=== PATIENT | female | born 1955 | race Two or more races ===

== ENCOUNTER 2020-06-26 13:20 | Inpatient (IN) | payer OTHER ==
[~2020-06-26] VITALS: Ht 162.6 cm; Wt 60.1 kg
--- NOTE | 2020-06-26 14:06 | NUR ---
house wirer: pt from lobby to room 3
--- NOTE | 2020-06-26 14:10 | NUR ---
Pt brought from lobby to room 3 with steady gait noted. technology professional arrived shortly thereafter for draw.
--- NOTE | 2020-06-26 14:23 | NUR ---
Pt given clean catch instructions with stated understanding of these and assisted to the restroom for a ua sample.
[2020-06-26 14:31] LABS: BASOPHILS % (AUTO) 1 % (0-1); EOSINOPHILS % (AUTO) 3 % (1-7); LYMPHOCYTES % (AUTO) 14 % (22-44); MEAN CORPUSCULAR HEMOGLOBIN 31.7 pg (27.0-34.8); MEAN CORPUSCULAR HGB CONC 33.7 g/dL (32.4-35.8); MEAN PLATELET VOLUME 7.3 fL (7.4-10.4); MONOCYTES % (AUTO) 9 % (2-9); NEUTROPHILS % (AUTO) 73 % (42-75); PLATELET COUNT 447 x10^3/uL (130-400); RED BLOOD COUNT 3.87 x10^6/uL (3.82-5.3); RED CELL DISTRIBUTION WIDTH 14.2 % (9.6-15.2)
--- NOTE | 2020-06-26 14:31 | NUR ---
UA sent at this time and US tech at bedside for exam as ordered. Still awaiting MD exam. All orders are from triage-placed orders.
[2020-06-26 14:32] LABS: MD NO
[2020-06-26 14:42] LABS: ALANINE AMINOTRANSFERASE 42 U/L (12-78); ALBUMIN 3.4 g/dL (3.4-5.0); ANION GAP 7 mmol/L (5-15); CALCIUM 10.2 mg/dL (8.5-10.1); CHLORIDE 105 mmol/L (98-107); CREATININE 0.95 mg/dL (0.55-1.02)
[2020-06-26 14:45] LABS: ALKALINE PHOSPHATASE 314 U/L (45-117); BILIRUBIN,TOTAL 0.4 mg/dL (0.2-1.0); TOTAL PROTEIN 8.6 g/dL (6.4-8.2)
[2020-06-26 14:47] LABS: MICROSCOPIC INDICATED
--- NOTE | 2020-06-26 15:24 | NUR ---
US Tech finished and left room. Pt reassessed at this time without acute changes noted. Pt and aware of waiting for MD to garbage pick up worker chart to come discuss lab results and US findings as well as to discuss further plans of care.
--- NOTE | 2020-06-26 15:49 | NUR ---
MD at bedside for exam now.
--- NOTE | 2020-06-26 15:51 | NUR ---
Asked to come help MD secondary to translation needs as pt is Italian-speaking only and MD does not speak Italian. Chaperoned for rectal exam as well with reported possible mass present near rectal opening and terell blood present for occult blood exam. Pt updated to need for CT scan secondary to US showing possible tumor on pancreas with mets to liver. Pt states understanding and that her mother when she was very young of CA of unknown origin. Pt starting to tear up with hearing cancer and further conversation repeated once more about need for IV and CT scan.
[2020-06-26] MEDS ORDERED: SODIUM CHLORIDE FLUSH 10ML SYR IVF ONE (16:00)
--- NOTE | 2020-06-26 16:08 | NUR ---
IV started. Comfort measures given to pt after possible cancer dx given and need for CT scan explained with MD. Pt tearful and verbalizes fear of dx. at bedside states the same.
[2020-06-26] MEDS ORDERED: OMEP-110 PO (16:38)
--- NOTE | 2020-06-26 17:01 | NUR ---
Pt returned from CT at this time without acute changes noted while off unit.
[2020-06-26] MEDS ORDERED: OMNIPAQUE 350 MG/ML, 100ML BOTTLE ONE (17:03)
--- NOTE | 2020-06-26 17:06 | NUR ---
Pt assisted to restroom and then back, placed back on bedside monitor and VS reassessed. Pt requesting water. Will ask MD for permission first.
--- NOTE | 2020-06-26 17:43 | NUR ---
at bedside with computer based translator and interpreter services for discussio of findings with pt/. States CT shows rectal mass and mets to liver and pancreas.
--- NOTE | 2020-06-26 17:51 | NUR ---
Plan is to admit pt per MD. Pt okay to have oral fluids now. Cup of water brought into room for pt and set up on tray next to bed when pt is ready. Pt is speaking with family via cellphone at this time.
[2020-06-26] MEDS ORDERED: SODIUM CHLORIDE FLUSH 10ML SYR IVF PRN (18:30)
--- NOTE | 2020-06-26 18:37 | NUR ---
Diet tray ordered for pt and water brought into room for both pt and her . Pt aware she is waiting on a room assignment and that her diet tray will take approximately 30 minutes from now. Pt denies pain and call light remains in reach.
--- NOTE | 2020-06-26 19:04 | NUR ---
Report called to HUSEYIN Barraza and pt readied to go to floor. Brief report given to NO Castro RN, to assume care from this point until pt transfers to floor.
[2020-06-26 19:43] VITALS: BP 126/70
[2020-06-27 01:30] VITALS: BP 115/67
[2020-06-27 07:16] VITALS: BP 119/70
[2020-06-27] MEDS ORDERED: FLU VACC QS2020-21(6MOS UP)/PF 60MCG/0.5 ML SYR IM ONE (09:00)
[2020-06-27 09:53] LABS: INTERNATIONAL NORMALIZED RATIO 1.06 (0.93-1.1); PROTHROMBIN TIME 11.3 Seconds (9.6-11.5)
[2020-06-27 13:24] VITALS: BP 122/73
[2020-06-27] MEDS ORDERED: LIDOCAINE 1%, 10ML ONE (14:15)
[2020-06-27] MEDS ORDERED: MIDAZOLAM 1 MG/ML, 5ML ONE (14:19)
[2020-06-27] MEDS ORDERED: FLUMAZENIL 0.1 MG/1 ML, 5ML ONE (14:19)
[2020-06-27] MEDS ORDERED: FENTANYL PF 100 MCG/2ML ONE (14:19)
[2020-06-27] MEDS ORDERED: NALOXONE 1 MG/ML, 2ML ONE (14:20)
[2020-06-27] MEDS: ACETAMINOPHEN 325 MG TABLET PO PRN (16:47)
[2020-06-27 19:30] VITALS: BP 113/73
[2020-06-28 01:06] VITALS: BP 110/72
[2020-06-28 07:39] VITALS: BP 129/73
[2020-06-28] MEDS: ACETAMINOPHEN 325 MG TABLET PO PRN (12:44)
[2020-06-28 14:45] VITALS: BP 123/77
[2020-06-28 19:50] VITALS: BP 117/73
[2020-06-29 02:03] VITALS: BP 110/67
[2020-06-29 05:21] LABS: BASOPHILS % (AUTO) 1 % (0-1); EOSINOPHILS % (AUTO) 2 % (1-7); LYMPHOCYTES % (AUTO) 20 % (22-44); MEAN CORPUSCULAR HEMOGLOBIN 31.2 pg (27.0-34.8); MEAN CORPUSCULAR HGB CONC 33.2 g/dL (32.4-35.8); MEAN PLATELET VOLUME 7.1 fL (7.4-10.4); MONOCYTES % (AUTO) 11 % (2-9); NEUTROPHILS % (AUTO) 67 % (42-75); PLATELET COUNT 356 x10^3/uL (130-400); RED BLOOD COUNT 3.79 x10^6/uL (3.82-5.3)
[2020-06-29 05:25] LABS: MD NO
[2020-06-29 05:29] LABS: CHLORIDE 108 mmol/L (98-107)
[2020-06-29 05:36] LABS: ALANINE AMINOTRANSFERASE 51 U/L (12-78); ALKALINE PHOSPHATASE 286 U/L (45-117); ANION GAP 5 mmol/L (5-15); BILIRUBIN,TOTAL 0.6 mg/dL (0.2-1.0); CALCIUM 10.1 mg/dL (8.5-10.1); CREATININE 0.78 mg/dL (0.55-1.02); TOTAL PROTEIN 7.7 g/dL (6.4-8.2)
[2020-06-29 08:15] VITALS: BP 123/78
[2020-06-29] MEDS: D5%-0.45NACL+KCL 20MEQ 1,000 ML IV SCH ×2 (08:58→22:41)
[2020-06-29] MEDS ORDERED: GOLYTELY 4,000ML ORAL.SOL PO ONE (10:30)
[2020-06-29 13:33] VITALS: BP 126/79
[2020-06-29] MEDS: ACETAMINOPHEN 325 MG TABLET PO PRN (17:48)
[2020-06-29 19:50] VITALS: BP 116/76
[2020-06-30 03:35] VITALS: BP 108/70
[2020-06-30 09:20] VITALS: BP 122/70
[2020-06-30] MEDS ORDERED: LABETALOL 5MG/ML, 20ML IV PRN (10:30)
[2020-06-30] MEDS ORDERED: HYDROmorphone 2 MG/ML, 1ML IVPush PRN (10:30)
[2020-06-30] MEDS ORDERED: DIAZEPAM 5 MG/ML, 2ML IVPush PRN (10:30)
[2020-06-30] MEDS ORDERED: MEPERIDINE/PF 25MG/0.5ML IVPush PRN (10:30)
[2020-06-30] MEDS ORDERED: OXYcodone 5 MG/5 ML ORAL.SOL UDC PO PRN (10:30)
[2020-06-30] MEDS ORDERED: hydrALAzine 20 MG/ML, 1ML IV PRN (10:30)
[2020-06-30] MEDS ORDERED: FENTANYL PF 100 MCG/2ML IV PRN (10:30)
[2020-06-30] MEDS ORDERED: ACETAMINOPHEN 325 MG TABLET PO PRN (10:30)
[2020-06-30] MEDS ORDERED: KETOROLAC 30 MG/1 ML IV PRN (10:30)
[2020-06-30] MEDS ORDERED: ALBUTEROL SULFATE 2.5 MG/3 ML NPPB PRN (10:30)
[2020-06-30] MEDS ORDERED: PROMETHAZINE 25 MG/ML, 1ML IV PRN (10:30)
[2020-06-30] MEDS: ACETAMINOPHEN 325 MG TABLET PO PRN (12:55)
[2020-06-30 13:58] VITALS: BP 117/71
[2020-06-30] MEDS: D5%-0.45NACL+KCL 20MEQ 1,000 ML IV SCH (15:48)
[2020-06-30 18:35] VITALS: BP 133/78
[2020-07-01 02:04] VITALS: BP 116/71
[2020-07-01] MEDS: D5%-0.45NACL+KCL 20MEQ 1,000 ML IV SCH ×2 (03:16→15:47)
[2020-07-01 07:23] VITALS: BP 123/77
[2020-07-01] MEDS ORDERED: PROPOFOL 10 MG/ML, 20ML ONE (10:01)
[2020-07-01 13:58] VITALS: BP 111/68
[2020-07-01 18:51] VITALS: BP 129/76
[2020-07-01] MEDS ORDERED: ONDANSETRON 2MG/ML, 2ML IVPush PRN (20:00)
[2020-07-01] MEDS ORDERED: GUAIFENESIN/DM 200-20MG, 10ML UDC PO PRN (20:00)
[2020-07-01] MEDS ORDERED: ENALAPRILAT 1.25 MG/ML, 2ML IVPush PRN (20:00)
[2020-07-01] MEDS ORDERED: LACTATED RINGERS 1,000 ML IV SCH (20:00)
[2020-07-01] MEDS ORDERED: morphine SULFATE 10 MG/ML, 1ML IVPush PRN (20:00)
[2020-07-01] MEDS ORDERED: METHOCARBAMOL 500 MG TABLET PO PRN (20:00)
[2020-07-01] MEDS: ACETAMINOPHEN 325 MG TABLET PO PRN (20:52)
[2020-07-01] MEDS: HEPARIN 5,000 UNITS/ML, 1ML SQ SCH (20:52)
[2020-07-01] MEDS ORDERED: TEMAZEPAM 15 MG CAPSULE PO PRN (21:00)
[2020-07-02 01:14] VITALS: BP 104/62
[2020-07-02 04:54] LABS: BASOPHILS % (AUTO) 1 % (0-1); EOSINOPHILS % (AUTO) 3 % (1-7); LYMPHOCYTES % (AUTO) 19 % (22-44); MEAN CORPUSCULAR HEMOGLOBIN 31.9 pg (27.0-34.8); MEAN CORPUSCULAR HGB CONC 33.7 g/dL (32.4-35.8); MEAN PLATELET VOLUME 6.9 fL (7.4-10.4); MONOCYTES % (AUTO) 11 % (2-9); NEUTROPHILS % (AUTO) 66 % (42-75); PLATELET COUNT 374 x10^3/uL (130-400); RED BLOOD COUNT 3.53 x10^6/uL (3.82-5.3); RED CELL DISTRIBUTION WIDTH 13.8 % (9.6-15.2)
[2020-07-02 05:05] LABS: ANION GAP 6 mmol/L (5-15); CALCIUM 11.2 mg/dL (8.5-10.1); CHLORIDE 106 mmol/L (98-107); CREATININE 0.81 mg/dL (0.55-1.02)
[2020-07-02 05:06] LABS: MD NO
[2020-07-02] MEDS: D5%-0.45NACL+KCL 20MEQ 1,000 ML IV SCH (05:20)
[2020-07-02 08:36] VITALS: BP 113/75
[2020-07-02] MEDS ORDERED: D5%-0.9% NACL 1,000 ML IV SCH (09:00)
[2020-07-02] MEDS: HEPARIN 5,000 UNITS/ML, 1ML SQ SCH ×3 (09:15→23:03)
[2020-07-02 15:58] VITALS: BP 130/74
[2020-07-02 18:51] VITALS: BP 142/75
[2020-07-02] MEDS: D5%-0.9% NACL 1,000 ML IV SCH (23:11)
[2020-07-03 02:54] VITALS: BP 120/71
[2020-07-03 06:00] LABS: BASOPHILS % (AUTO) 1 % (0-1); EOSINOPHILS % (AUTO) 2 % (1-7); LYMPHOCYTES % (AUTO) 21 % (22-44); MEAN CORPUSCULAR HEMOGLOBIN 31.8 pg (27.0-34.8); MEAN PLATELET VOLUME 7.1 fL (7.4-10.4); MONOCYTES % (AUTO) 11 % (2-9); NEUTROPHILS % (AUTO) 65 % (42-75); PLATELET COUNT 354 x10^3/uL (130-400); RED CELL DISTRIBUTION WIDTH 14.1 % (9.6-15.2)
[2020-07-03 06:02] LABS: CHLORIDE 106 mmol/L (98-107)
[2020-07-03 06:03] LABS: ANION GAP 6 mmol/L (5-15); CALCIUM 10.8 mg/dL (8.5-10.1); CREATININE 0.78 mg/dL (0.55-1.02)
[2020-07-03 06:28] LABS: MD NO
[2020-07-03] MEDS: D5%-0.9% NACL 1,000 ML IV SCH ×2 (07:16→22:55)
[2020-07-03 07:39] LABS: INTERNATIONAL NORMALIZED RATIO 1.08 (0.93-1.1); PROTHROMBIN TIME 11.5 Seconds (9.6-11.5)
[2020-07-03 08:29] VITALS: BP 119/74
[2020-07-03] MEDS ORDERED: SUCCINYLCHOLINE 20 MG/ML, 10ML ONE (08:41)
[2020-07-03] MEDS ORDERED: NEOSTIGMINE 1 MG/ML, 10ML ONE (08:41)
[2020-07-03] MEDS ORDERED: MIDAZOLAM 1 MG/ML, 2ML ONE (08:41)
[2020-07-03] MEDS ORDERED: ROCURONIUM 10MG/ML,5ML ONE (08:41)
[2020-07-03] MEDS ORDERED: PROPOFOL 10 MG/ML, 20ML ONE (08:41)
[2020-07-03] MEDS ORDERED: ONDANSETRON 2MG/ML, 2ML ONE (08:41)
[2020-07-03] MEDS ORDERED: CEFAZOLIN 1,000 MG ONE (08:41)
[2020-07-03] MEDS ORDERED: FENTANYL PF 100 MCG/2ML ONE ×2 (08:41→10:55)
[2020-07-03] MEDS ORDERED: GLYCOPYRROLATE 0.2MG/1ML, 5ML ONE (08:41)
[2020-07-03] MEDS ORDERED: CHLORHEXIDINE 15 ML UDC MM ONE (09:00)
[2020-07-03] MEDS ORDERED: BUPIVACAINE/PF 0.5% ONE (09:17)
[2020-07-03] MEDS ORDERED: PROMETHAZINE 25 MG/ML, 1ML IVPush PRN (09:30)
[2020-07-03] MEDS ORDERED: HYDROcodone/APAP 7.5-325MG/15ML UDC PO PRN (09:30)
[2020-07-03] MEDS ORDERED: ONDANSETRON 2MG/ML, 2ML IVPush PRN (09:30)
[2020-07-03] MEDS ORDERED: HYDROmorphone 1 MG/ML, 1ML INJ IVPush PRN (09:30)
[2020-07-03] MEDS ORDERED: MEPERIDINE/PF 25MG/0.5ML IVPush PRN (09:30)
[2020-07-03] MEDS ORDERED: OXYcodone 5 MG/5 ML ORAL.SOL UDC PO PRN (09:30)
[2020-07-03] MEDS ORDERED: OXYcodone 5 MG/5 ML ORAL.SOL UDC ONE (10:55)
[2020-07-03] MEDS: FENTANYL PF 100 MCG/2ML IV PRN ×2 (10:58→11:05)
[2020-07-03] MEDS: ACETAMINOPHEN 325 MG TABLET PO PRN ×2 (11:15→17:33)
[2020-07-03] MEDS ORDERED: ACETAMINOPHEN 650 MG/20.3 ML UDC ONE (11:16)
[2020-07-03] MEDS: OXYcodone/APAP 5/325MG TABLET PO PRN ×2 (12:04→20:11)
[2020-07-03 13:28] VITALS: BP 111/60
[2020-07-03 19:33] VITALS: BP 115/67
[2020-07-03] MEDS: HEPARIN 5,000 UNITS/ML, 1ML SQ SCH (20:10)
[2020-07-03 23:56] VITALS: BP 107/66
[2020-07-04 03:32] VITALS: BP 111/69
[2020-07-04 05:21] LABS: BASOPHILS % (AUTO) 0 % (0-1); EOSINOPHILS % (AUTO) 0 % (1-7); LYMPHOCYTES % (AUTO) 13 % (22-44); MEAN CORPUSCULAR HEMOGLOBIN 31.3 pg (27.0-34.8); MEAN CORPUSCULAR HGB CONC 33.2 g/dL (32.4-35.8); MEAN PLATELET VOLUME 7.4 fL (7.4-10.4); MONOCYTES % (AUTO) 7 % (2-9); NEUTROPHILS % (AUTO) 80 % (42-75); PLATELET COUNT 354 x10^3/uL (130-400); RED BLOOD COUNT 3.32 x10^6/uL (3.82-5.3)
[2020-07-04 05:24] LABS: MD NO
[2020-07-04] MEDS: OXYcodone/APAP 5/325MG TABLET PO PRN ×4 (05:24→21:33)
[2020-07-04 05:27] LABS: ANION GAP 5 mmol/L (5-15); CALCIUM 10.9 mg/dL (8.5-10.1); CHLORIDE 108 mmol/L (98-107); CREATININE 1.01 mg/dL (0.55-1.02)
[2020-07-04] MEDS: HEPARIN 5,000 UNITS/ML, 1ML SQ SCH ×2 (07:36→21:20)
[2020-07-04 07:48] VITALS: BP 127/66
[2020-07-04] MEDS: D5%-0.9% NACL 1,000 ML IV SCH ×2 (11:12→23:00)
[2020-07-04 13:08] VITALS: BP 139/77
[2020-07-04 18:40] VITALS: BP 131/72
[2020-07-04] MEDS: ACETAMINOPHEN 325 MG TABLET PO PRN (21:20)
[2020-07-05 00:52] VITALS: BP 122/52
[2020-07-05 04:51] LABS: BASOPHILS % (AUTO) 1 % (0-1); EOSINOPHILS % (AUTO) 3 % (1-7); LYMPHOCYTES % (AUTO) 20 % (22-44); MEAN CORPUSCULAR HEMOGLOBIN 31.4 pg (27.0-34.8); MEAN CORPUSCULAR HGB CONC 33.6 g/dL (32.4-35.8); MEAN PLATELET VOLUME 6.9 fL (7.4-10.4); MONOCYTES % (AUTO) 8 % (2-9); NEUTROPHILS % (AUTO) 69 % (42-75); PLATELET COUNT 364 x10^3/uL (130-400); RED BLOOD COUNT 3.32 x10^6/uL (3.82-5.3)
[2020-07-05 04:52] LABS: MD NO
[2020-07-05 05:02] LABS: ANION GAP 5 mmol/L (5-15); CALCIUM 10.3 mg/dL (8.5-10.1); CHLORIDE 106 mmol/L (98-107); CREATININE 0.67 mg/dL (0.55-1.02)
[2020-07-05 07:19] VITALS: BP 130/72
[2020-07-05] MEDS: DOCUSATE 100 MG CAPSULE PO PRN (09:21)
[2020-07-05] MEDS: OXYcodone/APAP 5/325MG TABLET PO PRN (09:21)
[2020-07-05] MEDS: HEPARIN 5,000 UNITS/ML, 1ML SQ SCH ×2 (09:22→19:54)
[2020-07-05] MEDS ORDERED: HEPARIN 1,000 UNITS/ML, 10ML ONE (11:36)
[2020-07-05] MEDS ORDERED: BUPIVACAINE/PF-EPI 0.5% 1:200K ONE (11:36)
[2020-07-05] MEDS ORDERED: CHLORHEXIDINE 15 ML UDC ONE (12:08)
[2020-07-05] MEDS ORDERED: FENTANYL PF 250 MCG/5ML ONE (12:09)
[2020-07-05] MEDS ORDERED: MIDAZOLAM 1 MG/ML, 2ML ONE (12:09)
[2020-07-05] MEDS ORDERED: PROPOFOL 50 ML ONE (12:09)
[2020-07-05] MEDS ORDERED: DEXAMETHASONE 4 MG/ML, 1ML ONE (12:21)
[2020-07-05] MEDS ORDERED: ROCURONIUM 10MG/ML,5ML ONE (12:21)
[2020-07-05] MEDS ORDERED: ONDANSETRON 2MG/ML, 2ML ONE (12:21)
[2020-07-05] MEDS ORDERED: SUCCINYLCHOLINE 20 MG/ML, 10ML ONE (12:21)
[2020-07-05] MEDS ORDERED: PROPOFOL 10 MG/ML, 20ML ONE (12:21)
[2020-07-05] MEDS ORDERED: CEFAZOLIN 1,000 MG ONE (12:21)
[2020-07-05] MEDS ORDERED: LABETALOL 5MG/ML, 20ML IV PRN (13:00)
[2020-07-05] MEDS ORDERED: DIAZEPAM 5 MG/ML, 2ML IVPush PRN (13:00)
[2020-07-05] MEDS ORDERED: FENTANYL PF 100 MCG/2ML IV PRN (13:00)
[2020-07-05] MEDS ORDERED: PROMETHAZINE 25 MG/ML, 1ML IVPush PRN (13:00)
[2020-07-05] MEDS ORDERED: HYDROmorphone 1 MG/ML, 1ML INJ IVPush PRN (13:00)
[2020-07-05] MEDS ORDERED: OXYcodone 5 MG/5 ML ORAL.SOL UDC PO PRN (13:00)
[2020-07-05] MEDS ORDERED: ACETAMINOPHEN 325 MG TABLET PO PRN (13:00)
[2020-07-05] MEDS ORDERED: ONDANSETRON 2MG/ML, 2ML IVPush PRN (13:00)
[2020-07-05] MEDS ORDERED: MEPERIDINE/PF 25MG/0.5ML IVPush PRN (13:00)
[2020-07-05] MEDS ORDERED: EPHEDRINE 50 MG/ML, 1ML IVPush PRN (13:00)
[2020-07-05] MEDS ORDERED: DIPHENHYDRAMINE 50 MG/ML, 1ML IVPush PRN (13:00)
[2020-07-05] MEDS ORDERED: EPHEDRINE 50 MG/ML, 1ML IM PRN (13:00)
[2020-07-05 13:58] VITALS: BP 129/75
[2020-07-05] MEDS: D5%-0.9% NACL 1,000 ML IV SCH (15:17)
[2020-07-05 18:39] VITALS: BP 116/70
[2020-07-06 00:34] VITALS: BP 120/74
[2020-07-06] MEDS: D5%-0.9% NACL 1,000 ML IV SCH ×2 (01:36→15:11)
[2020-07-06] MEDS: OMEPRAZOLE 20 MG CAPSULE.DR PO SCH (06:01)
[2020-07-06] MEDS: OXYcodone/APAP 5/325MG TABLET PO PRN ×3 (06:03→18:49)
[2020-07-06 07:24] LABS: BASOPHILS % (AUTO) 1 % (0-1); EOSINOPHILS % (AUTO) 1 % (1-7); LYMPHOCYTES % (AUTO) 20 % (22-44); MEAN CORPUSCULAR HEMOGLOBIN 31.8 pg (27.0-34.8); MEAN CORPUSCULAR HGB CONC 33.8 g/dL (32.4-35.8); MONOCYTES % (AUTO) 9 % (2-9); NEUTROPHILS % (AUTO) 70 % (42-75); PLATELET COUNT 387 x10^3/uL (130-400); RED BLOOD COUNT 3.22 x10^6/uL (3.82-5.3); RED CELL DISTRIBUTION WIDTH 14.2 % (9.6-15.2)
[2020-07-06 07:29] LABS: ALBUMIN 2.3 g/dL (3.4-5.0); ANION GAP 2 mmol/L (5-15); CALCIUM 10.8 mg/dL (8.5-10.1); CHLORIDE 106 mmol/L (98-107); CREATININE 0.68 mg/dL (0.55-1.02); MD NO
[2020-07-06] MEDS: HEPARIN 5,000 UNITS/ML, 1ML SQ SCH ×2 (08:07→20:10)
[2020-07-06 09:07] VITALS: BP 131/76
[2020-07-06 14:13] VITALS: BP 127/72
[2020-07-06 19:32] VITALS: BP 120/76
[2020-07-07 01:23] VITALS: BP 129/73
[2020-07-07] MEDS: OXYcodone/APAP 5/325MG TABLET PO PRN ×4 (01:27→20:17)
[2020-07-07] MEDS: D5%-0.9% NACL 1,000 ML IV SCH ×2 (03:17→17:58)
[2020-07-07 05:25] LABS: BASOPHILS % (AUTO) 1 % (0-1); EOSINOPHILS % (AUTO) 2 % (1-7); LYMPHOCYTES % (AUTO) 17 % (22-44); MEAN PLATELET VOLUME 7.5 fL (7.4-10.4); MONOCYTES % (AUTO) 8 % (2-9); NEUTROPHILS % (AUTO) 72 % (42-75); PLATELET COUNT 413 x10^3/uL (130-400); RED BLOOD COUNT 3.28 x10^6/uL (3.82-5.3); RED CELL DISTRIBUTION WIDTH 14.1 % (9.6-15.2)
[2020-07-07 05:31] LABS: CHLORIDE 104 mmol/L (98-107)
[2020-07-07 05:41] LABS: MD NO
[2020-07-07 05:44] LABS: ANION GAP 8 mmol/L (5-15); CALCIUM 10.5 mg/dL (8.5-10.1); CREATININE 0.66 mg/dL (0.55-1.02)
[2020-07-07] MEDS: OMEPRAZOLE 20 MG CAPSULE.DR PO SCH (06:07)
[2020-07-07 06:47] VITALS: BP 119/72
[2020-07-07] MEDS: HEPARIN 5,000 UNITS/ML, 1ML SQ SCH ×2 (09:16→20:18)
[2020-07-07 13:25] VITALS: BP 129/74
[2020-07-07] MEDS: ACETAMINOPHEN 325 MG TABLET PO PRN (15:05)
[2020-07-07 20:14] VITALS: BP 138/73
[2020-07-08 02:59] VITALS: BP 110/66
[2020-07-08] MEDS: OXYcodone/APAP 5/325MG TABLET PO PRN ×2 (03:04→13:42)
[2020-07-08 05:41] LABS: ANION GAP 6 mmol/L (5-15); CALCIUM 10.9 mg/dL (8.5-10.1); CHLORIDE 104 mmol/L (98-107)
[2020-07-08 05:42] LABS: CREATININE 0.62 mg/dL (0.55-1.02)
[2020-07-08] MEDS: OMEPRAZOLE 20 MG CAPSULE.DR PO SCH (06:25)
[2020-07-08 07:42] VITALS: BP 115/49
[2020-07-08] MEDS: DOCUSATE 100 MG CAPSULE PO PRN ×2 (08:07→20:11)
[2020-07-08] MEDS: HEPARIN 5,000 UNITS/ML, 1ML SQ SCH ×2 (08:08→20:11)
[2020-07-08] MEDS: D5%-0.9% NACL 1,000 ML IV SCH ×2 (08:09→20:14)
[2020-07-08] MEDS: ACETAMINOPHEN 325 MG TABLET PO PRN ×2 (10:30→18:19)
[2020-07-08 13:25] VITALS: BP 120/69
[2020-07-08 18:53] VITALS: BP 134/79
[2020-07-09 02:04] VITALS: BP 143/81
[2020-07-09 04:40] LABS: BASOPHILS % (AUTO) 1 % (0-1); EOSINOPHILS % (AUTO) 2 % (1-7); LYMPHOCYTES % (AUTO) 15 % (22-44); MEAN CORPUSCULAR HEMOGLOBIN 31.8 pg (27.0-34.8); MEAN CORPUSCULAR HGB CONC 34.2 g/dL (32.4-35.8); MEAN PLATELET VOLUME 7.1 fL (7.4-10.4); MONOCYTES % (AUTO) 10 % (2-9); NEUTROPHILS % (AUTO) 73 % (42-75); PLATELET COUNT 428 x10^3/uL (130-400); RED BLOOD COUNT 3.42 x10^6/uL (3.82-5.3); RED CELL DISTRIBUTION WIDTH 14.1 % (9.6-15.2)
[2020-07-09 04:41] LABS: MD NO
[2020-07-09 04:57] LABS: ANION GAP 7 mmol/L (5-15); CALCIUM 10.6 mg/dL (8.5-10.1); CHLORIDE 103 mmol/L (98-107)
[2020-07-09 04:59] LABS: CREATININE 0.63 mg/dL (0.55-1.02)
[2020-07-09] MEDS: OMEPRAZOLE 20 MG CAPSULE.DR PO SCH (06:11)
[2020-07-09] MEDS: OXYcodone/APAP 5/325MG TABLET PO PRN (06:13)
[2020-07-09 07:08] VITALS: BP 116/69
[2020-07-09 07:41] VITALS: BP 135/71
[2020-07-09] MEDS: DOCUSATE 100 MG CAPSULE PO PRN (07:49)
[2020-07-09] MEDS: HEPARIN 5,000 UNITS/ML, 1ML SQ SCH ×2 (07:49→20:51)
[2020-07-09] MEDS: D5%-0.9% NACL 1,000 ML IV SCH (09:42)
[2020-07-09 13:04] VITALS: BP 120/74
[2020-07-09] MEDS: SENNA/DOCUSATE TABLET PO SCH (15:06)
[2020-07-09] MEDS: POLYETHYLENE GLYCOL 17 GM PACKET PO SCH (15:06)
[2020-07-09] MEDS: ACETAMINOPHEN 325 MG TABLET PO PRN ×2 (15:15→20:50)
[2020-07-09 18:42] VITALS: BP 128/79
[2020-07-10 01:07] VITALS: BP 127/81
[2020-07-10] MEDS: OMEPRAZOLE 20 MG CAPSULE.DR PO SCH (06:06)
[2020-07-10] MEDS: ACETAMINOPHEN 325 MG TABLET PO PRN ×3 (06:06→20:37)
[2020-07-10 07:19] VITALS: BP 137/83
[2020-07-10] MEDS: POLYETHYLENE GLYCOL 17 GM PACKET PO SCH (08:47)
[2020-07-10] MEDS: SENNA/DOCUSATE TABLET PO SCH (08:48)
[2020-07-10] MEDS: HEPARIN 5,000 UNITS/ML, 1ML SQ SCH ×2 (08:48→20:54)
[2020-07-10 13:26] VITALS: BP 121/74
[2020-07-10 18:59] VITALS: BP 135/80
[2020-07-11 00:44] VITALS: BP 129/81
[2020-07-11 04:46] LABS: BASOPHILS % (AUTO) 1 % (0-1); EOSINOPHILS % (AUTO) 1 % (1-7); LYMPHOCYTES % (AUTO) 16 % (22-44); MEAN CORPUSCULAR HEMOGLOBIN 31.4 pg (27.0-34.8); MEAN CORPUSCULAR HGB CONC 33.7 g/dL (32.4-35.8); MEAN PLATELET VOLUME 7.1 fL (7.4-10.4); MONOCYTES % (AUTO) 10 % (2-9); NEUTROPHILS % (AUTO) 73 % (42-75); PLATELET COUNT 562 x10^3/uL (130-400); RED BLOOD COUNT 3.65 x10^6/uL (3.82-5.3); RED CELL DISTRIBUTION WIDTH 14.5 % (9.6-15.2)
[2020-07-11 04:48] LABS: MD NO
[2020-07-11 04:54] LABS: ANION GAP 7 mmol/L (5-15); CALCIUM 12.8 mg/dL (8.5-10.1); CHLORIDE 101 mmol/L (98-107); CREATININE 0.74 mg/dL (0.55-1.02)
[2020-07-11] MEDS: OMEPRAZOLE 20 MG CAPSULE.DR PO SCH (06:00)
[2020-07-11 07:20] VITALS: BP 126/79
[2020-07-11] MEDS: POLYETHYLENE GLYCOL 17 GM PACKET PO SCH (08:19)
[2020-07-11] MEDS: SENNA/DOCUSATE TABLET PO SCH (08:19)
[2020-07-11] MEDS: HEPARIN 5,000 UNITS/ML, 1ML SQ SCH ×2 (08:20→20:30)
[2020-07-11 12:55] VITALS: BP 132/77
[2020-07-11] MEDS ORDERED: METHYLNALTREXONE 12 MG/0.6 ML SYR SQ ONE (14:00)
[2020-07-11] MEDS: ACETAMINOPHEN 325 MG TABLET PO PRN (14:34)
[2020-07-11 18:54] VITALS: BP 115/76
[2020-07-12 00:59] VITALS: BP 117/72
[2020-07-12 05:50] LABS: BASOPHILS % (AUTO) 1 % (0-1); EOSINOPHILS % (AUTO) 1 % (1-7); LYMPHOCYTES % (AUTO) 15 % (22-44); MEAN CORPUSCULAR HEMOGLOBIN 31.6 pg (27.0-34.8); MEAN PLATELET VOLUME 7.4 fL (7.4-10.4); MONOCYTES % (AUTO) 9 % (2-9); NEUTROPHILS % (AUTO) 74 % (42-75); PLATELET COUNT 574 x10^3/uL (130-400); RED BLOOD COUNT 3.45 x10^6/uL (3.82-5.3); RED CELL DISTRIBUTION WIDTH 14.5 % (9.6-15.2)
[2020-07-12 05:51] LABS: MD NO
[2020-07-12 06:03] LABS: ALBUMIN 2.7 g/dL (3.4-5.0); ANION GAP 6 mmol/L (5-15); CHLORIDE 98 mmol/L (98-107)
[2020-07-12 06:06] LABS: ALANINE AMINOTRANSFERASE 93 U/L (12-78); ALKALINE PHOSPHATASE 607 U/L (45-117); BILIRUBIN,TOTAL 0.6 mg/dL (0.2-1.0); CREATININE 0.88 mg/dL (0.55-1.02)
[2020-07-12] MEDS: OMEPRAZOLE 20 MG CAPSULE.DR PO SCH (06:26)
[2020-07-12 06:48] VITALS: BP 110/70
[2020-07-12] MEDS: POLYETHYLENE GLYCOL 17 GM PACKET PO SCH (08:41)
[2020-07-12] MEDS: SENNA/DOCUSATE TABLET PO SCH (08:41)
[2020-07-12] MEDS: HEPARIN 5,000 UNITS/ML, 1ML SQ SCH (08:41)
[2020-07-12] MEDS ORDERED: OMEP-110 PO (11:11)
[2020-07-12] MEDS: ACETAMINOPHEN 325 MG TABLET PO PRN (12:20)
== END 2020-07-12 13:33 | disposition home or self-care (01) | DRG 330 ==
LOC: ED 16:58 → UNDOADMIN 18:21 → EDIP 18:21 → 3N 19:16 → EDIP 19:16 → 3N 22:04 → UNDODISIN 06-27 12:48 → 4NW 06-28 07:52 → DCLOUNGE 07-12 12:49
PROVIDERS: ADMIT Family Medicine; ATTEND Hospitalist
PROC: 0FB23ZX Excision of Left Lobe Liver, Percutaneous Approach, Diagnostic (ICD-10-PCS; 2020-06-27)
PROC: 0D1N4Z4 Bypass Sigmoid Colon to Cutaneous, Percutaneous Endoscopic Approach (ICD-10-PCS; principal; 2020-07-03 10:00)
PROC: 02HV33Z Insertion of Infusion Device into Superior Vena Cava, Percutaneous Approach (ICD-10-PCS; 2020-07-05)
PROC: B5181ZA Fluoroscopy of Superior Vena Cava using Low Osmolar Contrast, Guidance (ICD-10-PCS; 2020-07-05)
DX: C21.8 Malignant neoplasm of overlapping sites of rectum, anus and anal canal (principal); C78.7 Secondary malignant neoplasm of liver and intrahepatic bile duct; D64.9 Anemia, unspecified; K21.9 Gastro-esophageal reflux disease without esophagitis; K64.9 Unspecified hemorrhoids; Z80.49 Family history of malignant neoplasm of other genital organs; Z85.048 Personal history of other malignant neoplasm of rectum, rectosigmoid junction, and anus; Z93.3 Colostomy status; Z79.899 Other long term (current) drug therapy; Z79.891 Long term (current) use of opiate analgesic
CPT/HCPCS: 36415; 74018; 77001; 99285; J7042; S0020; 47000; 74177; 76700; 76942; 80048; 80053; 80069; 81001; 82378; 83690; 83735; 85025; 85610; 86850; 86900; 87635; 88305; 88307; 88341; 88342; 90686; 93005; 99156; G0378; J0690; J1100; J1644; J2250; J2405; J2704; J2710; J3010; Q9967; C1788; J0330; J2310; J3480; J7120

== ENCOUNTER 2020-07-16 11:01 | Outpatient (CLI) | payer OTHER ==
[~2020-07-16 11:01] MED LIST: OMEP-110 PO
== END 2020-07-16 23:59 | disposition home or self-care (01) ==
LOC: WOUND 11:01
PROVIDERS: ATTEND Internal Medicine Cardiovascular Disease
DX: Z43.3 Encounter for attention to colostomy (principal); K21.9 Gastro-esophageal reflux disease without esophagitis; C78.7 Secondary malignant neoplasm of liver and intrahepatic bile duct; Z85.048 Personal history of other malignant neoplasm of rectum, rectosigmoid junction, and anus
CPT/HCPCS: 99214